=== PATIENT | female | born 1965 | race Two or more races ===

== ENCOUNTER 2020-06-30 10:58 | Emergency (ER) | payer OTHER ==
[~2020-06-30] VITALS: Ht 160 cm; Wt 63.5 kg
[2020-06-30] MEDS ORDERED: ZYRTEC10 M3 PO (11:32)
[2020-06-30] MEDS ORDERED: SINGULAIR10 MG PO (11:32)
[2020-06-30] MEDS ORDERED: IVERMECTIN3 MG PO (16:13)
[2020-06-30] MEDS ORDERED: ZITHROMAX500 MG PO (16:13)
== END 2020-06-30 16:38 | disposition home or self-care (01) ==
LOC: ER 10:58
DX: U07.1 COVID-19 (principal); B34.9 Viral infection, unspecified; R50.9 Fever, unspecified

== ENCOUNTER 2020-07-09 11:51 | Inpatient (IN) | payer OTHER ==
[~2020-07-09] VITALS: Ht 157.5 cm; Wt 63.5 kg
[~2020-07-09 11:51] MED LIST: IVERMECTIN3 MG PO; SINGULAIR10 MG PO; ZITHROMAX500 MG PO; ZYRTEC10 M3 PO
--- NOTE | 2020-07-09 12:03 | NUR ---
SE RECIBE PACIENTE ALERTA, ORIENTADA EN TIEMPO LUGAR Y PERSONA. REFIERE PRESENTAR MALESTAR GENERALIZADO, DOLOR DE NORA, CUERPO Y TOS MEMO, PTE POSITIVA A COVID 19
--- NOTE | 2020-07-09 13:13 | NUR ---
SE ORIENTA A PACIENTE SOBRE TRATAMIENTO ORDENADO POR DR. BERNAL. RN CORTEZ COLECTA MUESTRAS ORDENADAS, ADMINISTRA MEDICAMENTOS, COLOCA VENOPUNCION PATENTE, DALIA DE ERITEMA Y EDEMA. SE MANTIENE PTE EN OBSERVACION POR CAMBIOS EN VILLA CONDICION. PENDIENTE CT DE PECHO.
--- NOTE | 2020-07-09 18:35 | NUR ---
PTE ALERTA Y ORIENTADA X3 ESFERAS EN CAMA CON BARANDAS ELEVADAS,NO PRESENTA DIFICULTAD RESP,AREA DE VENOPUNCION PATENTE Y DALIA DE EDEMA,PENDIENTE A EVALUACION DE MEDICINA INTERNA.
[2020-07-16] MEDS ORDERED: OMEGA-3 ACID ETH1 GM PO (16:27)
[2020-07-16] MEDS ORDERED: VITAMIN C500 M1 PO (16:27)
[2020-07-16] MEDS ORDERED: MEDROLPACK PO (16:27)
[2020-07-16] MEDS ORDERED: VITAMIN D3125 MC2 PO (16:27)
[2020-07-16] MEDS ORDERED: MELATONIN5 M2 PO (16:27)
[2020-07-16] MEDS ORDERED: ZINC SULFATE220 M2 PO (16:27)
[2020-07-16] MEDS ORDERED: ADULT LOW DOSE81 M1 PO (16:27)
== END 2020-07-16 17:41 | disposition home or self-care (01) | DRG 177 ==
LOC: ER 11:51 → MEDJ 20:34
PROVIDERS: ADMIT Internal Medicine; ATTEND Internal Medicine
PROC: BW25ZZZ Computerized Tomography (CT Scan) of Chest, Abdomen and Pelvis (ICD-10-PCS; 2020-07-09)
PROC: 4A033R1 Measurement of Arterial Saturation, Peripheral, Percutaneous Approach (ICD-10-PCS; principal; 2020-07-10)
PROC: 3E0F7SF Introduction of Other Gas into Respiratory Tract, Via Natural or Artificial Opening (ICD-10-PCS; 2020-07-10)
PROC: 4A12X4Z Monitoring of Cardiac Electrical Activity, External Approach (ICD-10-PCS; 2020-07-10)
PROC: XW033E5 Introduction of Remdesivir Anti-infective into Peripheral Vein, Percutaneous Approach, New Technology Group 5 (ICD-10-PCS; 2020-07-11)
DX: U07.1 COVID-19 (principal); J12.82 Pneumonia due to coronavirus disease 2019; R09.02 Hypoxemia; Z60.4 Social exclusion and rejection

== ENCOUNTER 2020-10-09 08:00 | Outpatient (CLI) | payer OTHER ==
[~2020-10-09 08:00] MED LIST changes: +ADULT LOW DOSE81 M1 PO; +MEDROLPACK PO; +MELATONIN5 M2 PO; +OMEGA-3 ACID ETH1 GM PO; +VITAMIN C500 M1 PO; +VITAMIN D3125 MC2 PO; +ZINC SULFATE220 M2 PO
== END 2020-10-09 08:30 | disposition home or self-care (01) ==
LOC: PPH VACUNA 08:00
DX: Z23 Encounter for immunization (principal)

== ENCOUNTER 2020-10-30 08:00 | Outpatient (CLI) | payer OTHER | END 2020-10-30 08:30 | disposition home or self-care (01) | LOC: PPH VACUNA 08:00 | DX: Z23 Encounter for immunization (principal) ==

== ENCOUNTER 2021-01-02 09:38 | Emergency (ER) | payer OTHER ==
[~2021-01-02] VITALS: Ht 160 cm; Wt 62.1 kg
== END 2021-01-02 15:28 | disposition home or self-care (01) ==
LOC: ER 09:38
DX: K62.5 Hemorrhage of anus and rectum (principal); K52.89 Other specified noninfective gastroenteritis and colitis

== ENCOUNTER 2021-04-02 09:00 | Outpatient (CLI) | payer OTHER | END 2021-04-02 09:15 | disposition home or self-care (01) | LOC: PPH VACUNA 09:00 | PROVIDERS: ATTEND Emergency Medicine Pediatric Emergency Medicine | DX: Z23 Encounter for immunization (principal) ==